=== PATIENT | female | born 1985 ===

== ENCOUNTER 2018-05-20 13:45 | Inpatient (IN) | payer OTHER ==
[~2018-05-20] VITALS: Ht 162.6 cm; Wt 88.9 kg
[2018-06-02] MEDS ORDERED: PRENATAL TABLE1 EAC2 PO (09:35)
== END 2018-06-04 13:31 | disposition home or self-care (01) | DRG 807 ==
LOC: OB/GYN 13:45 → LDR 06-02 08:26 → OB/GYN 06-02 19:14
PROVIDERS: ADMIT Obstetrics & Gynecology
PROC: 10E0XZZ Delivery of Products of Conception, External Approach (ICD-10-PCS; principal; 2018-06-02)
PROC: 0W8NXZZ Division of Female Perineum, External Approach (ICD-10-PCS; 2018-06-02)
PROC: 4A1HXCZ Monitoring of Products of Conception, Cardiac Rate, External Approach (ICD-10-PCS; 2018-06-02)
DX: O80 Encounter for full-term uncomplicated delivery (principal); Z37.0 Single live birth; Z3A.39 39 weeks gestation of pregnancy